=== PATIENT | female | born 1965 | race Caucasian/White ===

== ENCOUNTER 2018-09-12 11:26 | Observation (INO) | payer OTHER ==
[~2018-09-12] VITALS: Ht 157.5 cm; Wt 67.2 kg
[~2018-09-12 11:26] MED LIST: ATENOLOL50 MG PO; CLONIDINE0.1 M1 PO; COL100 PO; FER300 PO; IMITREX50 MG PO; LISINOPRIL40 MG PO; NOR10T PO; PHENERGAN25 M2 PO; PHOSLO667 MG PO; SENSIPAR30 M1 PO; VITC PO; ZES10 PO; ZOFRAN ODT4 MG SL
[2018-09-12] MEDS ORDERED: PREDNISONE5 MG PO (14:17)
[2018-09-12] MEDS ORDERED: CEL500 PO (14:17)
[2018-09-12] MEDS ORDERED: PROGRAF1 MG PO (14:17)
[2018-09-12 15:05] LABS: BASOPHIL % 0.2 % (0-2); PLATELET COUNT 156 x10^3mcL (130-400); RED CELL DISTRIBUTION WIDTH 14.5 % (11.5-14.5)
[2018-09-12 15:15] LABS: CALCIUM 9.6 mg/dL (8.5-10.1); CARBON DIOXIDE 19.2 mmol/L (21-32); CHLORIDE SERUM 106 mmol/L (98-107); CREATININE SERUM 0.9 mg/dL (0.6-1.0); GFR1 > 60 mL/min; GLUCOSE SERUM 111 mg/dL (74-106); POTASSIUM SERUM 3.8 mmol/L (3.5-5.1); SODIUM SERUM 137 mmol/L (136-145)
[2018-09-12 16:23] LABS: T3 TOTAL 1.3 ng/mL
[2018-09-12 16:29] LABS: MAGNESIUM 1.6 mg/dL (1.8-2.4); PHOSPHOROUS 1.5 mg/dL (2.5-4.9)
[2018-09-12 16:38] VITALS: BP 124/80
[2018-09-12 17:00] LABS: FREE T4 0.89 ng/dL (0.76-1.46); FREE THYROXINE INDEX 2.7 ug/dL (1.4-4.5); T4(THYROXINE) 7.6 ug/dL (4.7-13.3)
[2018-09-12 17:38] VITALS: BP 124/71
[2018-09-12 19:15] VITALS: BP 118/73
[2018-09-12 22:50] VITALS: Ht 157.5 cm; Wt 67.2 kg
[2018-09-13 06:06] VITALS: BP 116/73
[2018-09-13 06:23] LABS: CALCIUM 9.6 mg/dL (8.5-10.1); CARBON DIOXIDE 21.5 mmol/L (21-32); CHLORIDE SERUM 106 mmol/L (98-107); GFR1 > 60 mL/min; GLUCOSE SERUM 172 mg/dL (74-106); POTASSIUM SERUM 4.1 mmol/L (3.5-5.1); SODIUM SERUM 140 mmol/L (136-145)
[2018-09-13 06:36] LABS: PLATELET COUNT 164 x10^3mcL (130-400); RED CELL DISTRIBUTION WIDTH 14.2 % (11.5-14.5)
[2018-09-13 07:37] LABS: BASOPHIL % 0 % (0-2)
[2018-09-13 09:39] VITALS: BP 116/73
[2018-09-13 09:52] VITALS: BP 132/79
== END 2018-09-13 10:45 | disposition home or self-care (01) | DRG 154 ==
LOC: ED 11:26 → MU 16:07
PROVIDERS: Emergency Medicine; General Practice
DX: J38.5 Laryngeal spasm (principal); N18.6 End stage renal disease; Z94.0 Kidney transplant status; I50.42 Chronic combined systolic (congestive) and diastolic (congestive) heart failure; F41.9 Anxiety disorder, unspecified; D63.8 Anemia in other chronic diseases classified elsewhere; G40.909 Epilepsy, unspecified, not intractable, without status epilepticus; Z79.899 Other long term (current) drug therapy; Z79.891 Long term (current) use of opiate analgesic; Z79.52 Long term (current) use of systemic steroids
CPT/HCPCS: 84439; 90658; G0378; J1644; J2930; J7507; J7517; Q0092